=== PATIENT | female | born 1950 | race Caucasian/White ===

== ENCOUNTER 2016-06-14 11:02 | Observation (INO) ==
[2016-06-14] MEDS ORDERED: NS 1,000 ML IV SCH (12:27)
[2016-06-14] MEDS ORDERED: TYLENOL PO PRN (12:27)
[2016-06-14] MEDS ORDERED: ZOFRAN IV PRN (12:27)
--- NOTE | 2016-06-14 13:02 | Diag Imaging Result Document ---
PROCEDURE NAME: CHEST-PORTABLE - 06/14/2016 AP PORTABLE CHEST AT 1235 HOURS: FINDINGS: Compared to 12/28/2015, there has been no significant change other than generally poor inspiration. The heart size and pulmonary vascularity are within normal limits. IMPRESSION: No acute disease.
--- NOTE | 2016-06-14 13:47 | Diag Imaging Result Document ---
PROCEDURE NAME: US ABDOMEN-COMPLETE - 06/14/2016 RIGHT UPPER QUADRANT ULTRASOUND: FINDINGS: The aorta and inferior vena cava are normal in appearance where they are visible. The pancreas is normal where it is visible. The kidneys are without evidence of hydronephrosis or mass. The gallbladder is surgically absent. There is antegrade flow in the portal vein and, otherwise, the liver is unremarkable. The common bile duct measures 4 mm and, otherwise, there is no evidence of biliary dilatation. There are no abnormal fluid collections. The spleen is not enlarged. IMPRESSION: No evidence of acute disease.
[2016-06-14] MEDS ORDERED: LEVAQUIN 750 MG/D5W 150 ML IV SCH (14:00)
[2016-06-14 14:13] LABS: AGAP 13; ALKALINE PHOSPHATASE 67 U/L (32-104); AMYLASE 31 U/L (20-200); BUN 13 mg/dL (8-22); CALCIUM 8.6 mg/dL (8.8-10.2); CHLORIDE 102 mmol/L (98-107); COSMO 280; GOT 24 U/L (10-30); GPT 19 U/L (10-36); LIPASE 21 U/L (13-60); POTASSIUM 4.2 mmol/L (3.5-5.1); SODIUM 139 mmol/L (136-145); TCO2 24 mmol/L (25-35); TOTAL BILIRUBIN 0.92 mg/dL (0.20-1.00); TOTAL PROTEIN 6.1 g/dL (6.3-8.3)
[2016-06-14 14:42] LABS: BASO% 0.4 % (0.0-0.8); EOS# 0.02 X1000 (0.0-0.7); EOS% 0.2 % (0.0-10.0); HEMATOCRIT 35.8 % (37.0-47.0); HEMOGLOBIN 12.9 g/dL (12.0-16.0); IMM GRAN# 0.05 X1000 (0.0-0.04); IMM GRAN% 0.4 % (0.0-0.5); LYMPH# 0.73 X1000 (1.2-3.4); LYMPH% 6.5 % (20.5-51.1); MANUAL DIFF NEEDED? YES; MCH 32.2 PG (27-31); MCV 89.3 FL (81-99); MONO# 0.24 X1000 (0.11-0.59); MONO% 2.1 % (1.7-9.3); MPV 10.7 FL (7.4-10.4); NEUT% 90.4 % (42.2-75.2); PLT 302 X1000 (130-400); RBC 4.01 XMIL (4.2-5.4)
[2016-06-14] MEDS ORDERED: PROTONIX IV SCH (15:45)
[2016-06-14] MEDS ORDERED: SODIUM CHLORIDE 0.9% INJ SCH (15:45)
[2016-06-14 16:07] LABS: BANDS 4 % (0-1); LYMPHS 10 % (21-51)
[2016-06-14] MEDS: DUONEB (A & A) INH SCH ×2 (16:27→20:47)
[2016-06-14] MEDS: LEVAQUIN PO SCH (17:03)
[2016-06-14 19:52] VITALS: BP 111/44
[2016-06-14] MEDS ORDERED: DESYREL PO PRN (20:56)
[2016-06-14] MEDS ORDERED: SINGULAIR PO SCH (21:00)
[2016-06-15] MEDS: LEVAQUIN PO SCH (09:00)
== END 2016-06-15 09:00 | disposition home or self-care (01) ==
LOC: DIRADM 11:02 → 3N 12:18 → DIRADM 06-15 10:00
PROVIDERS: ADMIT Internal Medicine; ATTEND Internal Medicine